=== PATIENT | female | born 1995 | race Two or more races ===

== ENCOUNTER 2023-12-13 13:34 | Emergency (ER) | payer OTHER ==
[2023-12-13 13:48] VITALS: BP 126/77; PULSE 64; RESP 20; TEMP 98.5; BMI 28.0
[2023-12-13] MEDS ORDERED: FAMOTIDINE 20 MG TABLET ONE (13:55)
[2023-12-13] MEDS ORDERED: MAG HYDROX/AL HYDROX/SIMETH 30 ML UNIT-DOSE CUP ONE (13:55)
[2023-12-13] MEDS ORDERED: ACETAMINOPHEN 325 MG TABLET (FP) ONE (13:55)
[2023-12-13] MEDS: ACETAMINOPHEN 325 MG TABLET (FP) PO ONE (14:02)
[2023-12-13] MEDS: MAG HYDROX/AL HYDROX/SIMETH -MYLANTA- ORAL SUSPENSION PO ONE (14:02)
[2023-12-13] MEDS: FAMOTIDINE 20 MG TABLET PO ONE (14:02)
== END 2023-12-13 16:07 | disposition home or self-care (01) ==
LOC: JER 13:34
DX: R10.13 Epigastric pain (principal); R11.2 Nausea with vomiting, unspecified; J02.9 Acute pharyngitis, unspecified
CPT/HCPCS: 84703; 99283-25